=== PATIENT | male | born 1940 | race Hispanic/Latino ===

== ENCOUNTER 2024-06-12 20:16 | Inpatient (IN) | payer MEDICARE ==
[~2024-06-12] VITALS: Ht 170.2 cm; Wt 78.5 kg
[2024-06-12] MEDS: FUROSEMIDE INJ 10 MG/ML 4 ML VIAL IV ONE (21:25)
[2024-06-12 21:28] LABS: BASOPHILS % 0.3 % (0.0-1.0); EOSINOPHILS # (AUTO) 0.1 (0.0-0.4); EOSINOPHILS % 1.9 % (0.0-6.0); HEMATOCRIT 41.5 % (38.2-49.6); HEMOGLOBIN 14.5 g/dL (14.0-18.0); LYMPHOCYTES # (AUTO) 1.5 (1.0-3.2); LYMPHOCYTES % 21.2 % (18.0-39.1); MEAN CORPUSCULAR HEMOGLOBIN 32.6 pg (28-32); MEAN CORPUSCULAR HGB CONC 34.9 g/dL (31-35); MEAN CORPUSCULAR VOLUME 93.3 fL (81-99); MONOCYTES # (AUTO) 0.6 (0.2-0.8); MONOCYTES % 8.7 % (4.4-11.3); NEUTROPHILS # (AUTO) 4.9 (2.1-6.9); NEUTROPHILS % 67.5 % (38.7-80.0); PLATELET COUNT 202 x10e3/uL (140-360); RED BLOOD COUNT 4.45 x10e6/uL (4.3-5.7); RED CELL DISTRIBUTION WIDTH 11.5 % (11.7-14.4); WHITE BLOOD COUNT 7.27 x10e3/uL (4.8-10.8)
[2024-06-12 21:50] LABS: ALBUMIN 4.2 g/dL (3.5-5.0); ALBUMIN/GLOBULIN RATIO 1.2 (0.8-2.0); ANION GAP 16.2 mmol/L (8-16); BILIRUBIN,TOTAL 1.2 mg/dL (0.2-1.2); CALCIUM 8.9 mg/dL (8.4-10.2); CREATININE, SERUM 0.8 mg/dL (0.72-1.25); POTASSIUM 4.2 mmol/L (3.5-5.1); TOTAL PROTEIN 7.7 g/dL (6.5-8.1)
[2024-06-12] MEDS: MUPIROCIN 2% OINT 22 GM TUBE TOP SCH (22:00)
[2024-06-12 23:38] VITALS: PULSE 81; RESP 18; O2SAT 99
[2024-06-13] VITALS (19 sets, daily range): BP systolic 92–159; BP diastolic 56–110; PULSE 79–102; RESP 13–23; TEMP 97.7–98.5; O2SAT 94–100
[2024-06-13 05:40] LABS: BASOPHILS % 0.1 % (0.0-1.0); EOSINOPHILS % 0.6 % (0.0-6.0); HEMATOCRIT 36.8 % (38.2-49.6); HEMOGLOBIN 13.2 g/dL (14.0-18.0); LYMPHOCYTES # (AUTO) 0.9 (1.0-3.2); LYMPHOCYTES % 13.4 % (18.0-39.1); MEAN CORPUSCULAR HEMOGLOBIN 32.9 pg (28-32); MEAN CORPUSCULAR HGB CONC 35.9 g/dL (31-35); MEAN CORPUSCULAR VOLUME 91.8 fL (81-99); MONOCYTES # (AUTO) 0.7 (0.2-0.8); MONOCYTES % 10.6 % (4.4-11.3); NEUTROPHILS % 74.9 % (38.7-80.0); PLATELET COUNT 164 x10e3/uL (140-360); RED BLOOD COUNT 4.01 x10e6/uL (4.3-5.7); RED CELL DISTRIBUTION WIDTH 11.2 % (11.7-14.4)
[2024-06-13 06:10] LABS: TROPONIN I 0.006 ng/mL (0-0.300)
[2024-06-13 06:18] LABS: ALBUMIN 3.7 g/dL (3.5-5.0); ALBUMIN/GLOBULIN RATIO 1.2 (0.8-2.0); ANION GAP 14.9 mmol/L (8-16); BILIRUBIN,TOTAL 1.1 mg/dL (0.2-1.2); CALCIUM 8.6 mg/dL (8.4-10.2); CREATININE, SERUM 0.74 mg/dL (0.72-1.25); POTASSIUM 3.9 mmol/L (3.5-5.1); TOTAL PROTEIN 6.7 g/dL (6.5-8.1)
[2024-06-13] MEDS: FUROSEMIDE INJ 10 MG/ML 4 ML VIAL IV SCH (09:03)
[2024-06-13] MEDS ORDERED: LOSARTAN POTAS100 MG PO (11:39)
[2024-06-13] MEDS ORDERED: MULTI-VITAMIN1 EACH PO (11:47)
[2024-06-13] MEDS ORDERED: VITAMIN D PO (11:47)
[2024-06-13] MEDS ORDERED: OMEGA 3 1,0001 EACH PO (11:47)
[2024-06-13] MEDS ORDERED: ATORVASTATIN CA10 MG PO (11:47)
[2024-06-13] MEDS ORDERED: METOPROLOL SUCC50 MG PO (11:47)
[2024-06-13] MEDS ORDERED: LASIX20 MG PO (11:47)
[2024-06-13] MEDS ORDERED: HYDRALAZINE HCL 20 MG/ML VIAL IV PRN (13:00)
[2024-06-13] MEDS ORDERED: ACETAMINOPHEN 325 MG TAB PO PRN (13:00)
[2024-06-13] MEDS ORDERED: ONDANSETRON HCL INJ 2MG/ML 2ML 2 MG/ML VIAL IV PRN (13:00)
[2024-06-13 14:20] LABS: TROPONIN I 0.009 ng/mL (0-0.300)
[2024-06-13] MEDS: VITAMIN D 10000 UNIT PO SCH (16:34)
[2024-06-13] MEDS ORDERED: SODIUM CHLORIDE 452MG TAB PO SCH (17:00)
[2024-06-13] MEDS: ATORVASTATIN 10 MG TAB PO SCH (20:00)
[2024-06-13] MEDS: SODIUM CHLORIDE 1 GM TAB PO SCH (20:01)
[2024-06-14] VITALS (8 sets, daily range): BP systolic 123–147; BP diastolic 61–92; PULSE 80–92; RESP 16–20; TEMP 97.3–98.4; O2SAT 20–100
[2024-06-14 06:14] LABS: BASOPHILS % 0.2 % (0.0-1.0); EOSINOPHILS # (AUTO) 0.2 (0.0-0.4); EOSINOPHILS % 3.7 % (0.0-6.0); HEMATOCRIT 37.9 % (38.2-49.6); HEMOGLOBIN 13.7 g/dL (14.0-18.0); LYMPHOCYTES % 16.2 % (18.0-39.1); MEAN CORPUSCULAR HEMOGLOBIN 33.3 pg (28-32); MEAN CORPUSCULAR HGB CONC 36.1 g/dL (31-35); MONOCYTES # (AUTO) 0.7 (0.2-0.8); MONOCYTES % 11.1 % (4.4-11.3); NEUTROPHILS # (AUTO) 4.1 (2.1-6.9); NEUTROPHILS % 68.5 % (38.7-80.0); PLATELET COUNT 172 x10e3/uL (140-360); RED BLOOD COUNT 4.12 x10e6/uL (4.3-5.7); RED CELL DISTRIBUTION WIDTH 11.3 % (11.7-14.4); WHITE BLOOD COUNT 5.97 x10e3/uL (4.8-10.8)
[2024-06-14 06:49] LABS: ANION GAP 14.7 mmol/L (8-16); CREATININE, SERUM 0.68 mg/dL (0.72-1.25); POTASSIUM 3.7 mmol/L (3.5-5.1)
[2024-06-14] MEDS: METOPROLOL SUCCINATE 50 MG TAB XL PO SCH (09:13)
[2024-06-14] MEDS: MULTIVITAMINS/MINERALS TAB PO SCH (09:13)
[2024-06-14] MEDS: OMEGA 3 POLYUNSAT FATTY ACIDS 1000 MG SOFTGEL PO SCH (09:14)
[2024-06-15] VITALS: BP 123/78; PULSE 85; RESP 18; TEMP 99.3; O2SAT 99
[2024-06-15 04:00] VITALS: BP 131/77; PULSE 87; RESP 18; TEMP 99.1; O2SAT 98
[2024-06-15 06:16] LABS: ANION GAP 15.7 mmol/L (8-16); CALCIUM 9.5 mg/dL (8.4-10.2); CREATININE, SERUM 0.75 mg/dL (0.72-1.25); POTASSIUM 3.7 mmol/L (3.5-5.1)
[2024-06-15 08:00] VITALS: BP 131/77; PULSE 87; RESP 18; TEMP 99.1; O2SAT 98
[2024-06-15] MEDS: ASPIRIN 81 MG ENTERIC COATED PO SCH (10:02)
[2024-06-15 11:45] VITALS: BP 142/77; PULSE 86; RESP 19; TEMP 97.9; O2SAT 99
[2024-06-15] MEDS: SODIUM CHLORIDE 1 GM TAB PO ONE (13:15)
[2024-06-16] MEDS ORDERED: LOSARTAN POTASSIUM 100 MG TAB PO SCH (09:00)
[2024-06-16] MEDS ORDERED: FUROSEMIDE 20 MG TAB PO SCH (09:00)
== END 2024-06-15 14:27 | disposition home or self-care (01) | DRG 291 ==
LOC: EDSEX 20:16 → ER 20:28 → ERHOLD 22:57 → ICU 06-13 10:20 → MED/SURG2 06-13 21:54
PROVIDERS: ADMIT Internal Medicine; ATTEND Internal Medicine
DX: I11.0 Hypertensive heart disease with heart failure (principal); I50.23 Acute on chronic systolic (congestive) heart failure; E87.1 Hypo-osmolality and hyponatremia; R09.02 Hypoxemia; S00.83XA Contusion of other part of head, initial encounter; S00.03XA Contusion of scalp, initial encounter; W01.198A Fall on same level from slipping, tripping and stumbling with subsequent striking against other object, initial encounter; Y92.39 Other specified sports and athletic area as the place of occurrence of the external cause; I49.3 Ventricular premature depolarization; I25.10 Atherosclerotic heart disease of native coronary artery without angina pectoris; Z95.5 Presence of coronary angioplasty implant and graft; E78.00 Pure hypercholesterolemia, unspecified; Y90.5 Blood alcohol level of 100-119 mg/100 ml; Z79.02 Long term (current) use of antithrombotics/antiplatelets; Z79.899 Other long term (current) drug therapy
CPT/HCPCS: 36415; 70450; 71045; 71250; 72125; 80048; 80053; 80320; 82550; 83880; 84295; 84484; 85025; 93005; 93306; 94760; 94799; 99252; 99284; J1940